=== PATIENT | female | born 1990 | race Caucasian/White ===

== ENCOUNTER 2016-11-05 10:06 | Emergency (ER) | payer SELFPAY ==
[2016-11-05] MEDS ORDERED: Tetan/Diph/Pertus SYR(Tdap)* 0.5 ML SYR(BOOSTRIX) use SYR IM ONE (11:53)
--- NOTE | 2016-11-05 12:16 | UC ---
Laceration HPI - HPI Summary HPI Summary: 26 female presents with complaints of nasal laceration that occurred last night around 1am after having her 2 year old child "headbutt" her on accident. Patient states she tried to butterfly strip it but it did not hold. Woke up this morning thinking she needed to have it closed. Bleeding is under control. Admits to swelling. Does not believe she has a broken bone however it is tender to touch. Tetanus is not UTD. Has not taken any medication. Denies difficultly breathing, epistaxis and problem with nares. NO other complaints or injuries. Denies head injury/concussive symptoms such as visual changes, nausea, headache , vomiting, and memory loss. No LOC. - History Of Current Complaint Chief Complaint: UCLaceration Stated Complaint: NOSE LACERATION Time Seen by Provider: 11/05/16 10:57 Hx Obtained From: Patient Hx Last Menstrual Period: 11/05/16 Laceration Location: Face - nose Mechanism Of Injury: Blunt Trauma Onset/Duration: Sudden Onset, Still Present, Worse Since Severity: Mild Pain Intensity: 5 Pain Scale Used: 0-10 Numeric Aggravating Factors: Other: - touch Head: 1 - laceration - Allergies/Home Medications Allergies/Adverse Reactions: Allergies Allergy/AdvReac Type Severity Reaction Status Date / Time No Known Allergies Allergy Verified 11/05/16 11:04 Home Medications: Home Medications NK [No Home Medications Reported] 11/05/16 [History Confirmed 11/05/16] PMH/Surg Hx/FS Hx/Imm Hx - Additional Past Medical History Additional PMH: Denies PMHx: no HTN DM or asthma - Surgical History Surgical History: Yes Surgery Procedure, Year, and Place: right 5th finger fx - Family History Known Family History: Positive: None - Social History Alcohol Use: None Substance Use Type: Marijuana Substance Use Comment - Amount & Last Used: 11/05/16 Smoking Status (MU): Former Smoker When Did the Patient Quit Smoking/Using Tobacco: one week ago 11/02/14 - Immunization History Most Recent Influenza Vaccination: NONE 2017 Review of Systems Constitutional: Negative Skin: Other - laceration, swelling over nasal bridge Eyes: Negative ENT: Negative Respiratory: Negative Cardiovascular: Negative Neurological: Negative All Other Systems Reviewed And Are Negative: Yes Physical Exam Triage Information Reviewed: Yes Appearance: Well-Appearing, No Pain Distress, Well-Nourished Vital Signs: Initial Vital Signs Temp 98.4 F 11/05/16 11:04 Pulse 60 11/05/16 11:04 Resp 16 11/05/16 11:04 BP 108/79 11/05/16 11:04 Pulse Ox 100 11/05/16 11:04 Vital Signs Reviewed: Yes Eyes: Positive: Conjunctiva Clear ENT: Positive: Normal ENT inspection, Hearing grossly normal, Pharynx normal, TMs normal, Other: - normal nares without septal hematoma, laceration noted on superficial nasal bridge Neck: Positive: Supple, Nontender, No Lymphadenopathy Respiratory: Positive: Chest non-tender, Lungs clear, Normal breath sounds, No respiratory distress, No accessory muscle use Cardiovascular: Positive: RRR, No Murmur, Pulses Normal, Brisk Capillary Refill Musculoskeletal: Positive: Strength Intact, ROM Intact Neurological: Positive: Alert, Muscle Tone Normal Skin: Positive: Other - 1cm laceration superficial noted over nasal bridge, minimal to no bleeding, No FB or complication Laceration Repair - Laceration Repair 1 Description: Linear Laceration Size After Repair: Length (cm) - 1cm, Width (mm) - .5, Depth (mm) - superficial epidermal layer, no SQ Contamination/FB Removal: none Modified For Repair: No Closure Material: Skin Adhesive, SteriStrips Suture Of: Skin Diagnostics - Radiology CT maxillofacial Xray Interpretation: Positive (See Comments) - There are nondisplaced fractures of the distal nasal bones bilaterally. There is a arches are intact. The pterygoid plates are intact. The orbital rims are intact. Radiology Interpretation Completed By: Radiologist Laceration Course/Dx - Course/Dx Course Of Treatment: Ct maxillofacial obtained to rule out fracture. did show bilateral nondisplaced nasal bone fracture. tetanus updated. due to patient preference laceration was glued and steri-stripped. educated this may be difficult to keep dry and may have bigger scar, patient wanted skin adhesive and steri stipp anyway. well approximated, closed nicely. did not want pain management. tolerate procedure well without complication. Keep clean and dry. cool compresses for swelling. follow up pcp and ENT for fracture. aware of worsening signs and symptoms such as trouble breathing through nose or bleeding/ lac re-opening. - Differential Dx - Laceration/Wound Differental Diagnoses: Abrasion, Abscess, Avulsion, Fracture, Laceration Provider Diagnoses: laceration nasal bridge, nasal bone fracture Discharge - Discharge Plan Condition: Stable Disposition: HOME Patient Education Materials: Nasal Fracture (ED), Laceration (ED), Skin Adhesive Care (ED) Referrals: Alex Roberts MD [Medical Doctor] - CHRISTINE Chowdary [Primary Care Provider] - Additional Instructions: Take Ibuprofen for pain and inflammation as needed. Do not get steri strips wet. Keep clean and dry for atleast 3 days. Do not pick at glue or steri strips allow to fall off on its own after healed. Apply cool compresses to help with swelling. If you develop worsening signs or symptoms such as difficulty breathing or bleeding please seek medical attention promptly. Follow up with ENT and PCP.
--- NOTE | 2016-11-05 12:38 | RAD ---
HISTORY: Nasal trauma COMPARISONS: None TECHNIQUE: Multiple contiguous axial CT scans were obtained of the face without intravenous contrast, with coronal and sagittal multiplanar reformations. FINDINGS: BONES: There are nondisplaced fractures of the distal nasal bones bilaterally. There is a arches are intact. The pterygoid plates are intact. The orbital rims are intact. ORBITS: The globes are round. The optic nerves are symmetric. The extraocular musculature is normal. There is no post septal or intraconal inflammatory change. There is no retrobulbar hematoma. PARANASAL SINUSES: The paranasal sinuses are clear. BRAIN AND SOFT TISSUE: Unremarkable. OTHER: None. IMPRESSION: NONDISPLACED BONE FRACTURES BILATERALLY
[2016-11-05 13:04] VITALS: BP 122/76
== END 2016-11-05 13:10 | disposition home or self-care (01) ==
LOC: UCCORT 10:06
DX: S01.21XA Laceration without foreign body of nose, initial encounter (principal); S02.2XXA Fracture of nasal bones, initial encounter for closed fracture; W50.0XXA Accidental hit or strike by another person, initial encounter; Y93.9 Activity, unspecified; Y92.9 Unspecified place or not applicable; Z23 Encounter for immunization; F12.90 Cannabis use, unspecified, uncomplicated; Z87.891 Personal history of nicotine dependence
CPT/HCPCS: 12011; 70486; 90471; 90715; 99212; G0463